=== PATIENT | female | born 1950 | race Caucasian/White ===

== ENCOUNTER 2021-04-04 08:45 | Inpatient (IN) ==
[2021-04-04] MEDS ORDERED: IOPAMIDOL 100 ML BOTTLE IV ONE (08:46)
[2021-04-04] MEDS ORDERED: LACTATED RINGERS 1,000 ML IV ONE (09:15)
[2021-04-04] MEDS ORDERED: ONDANSETRON 4 MG/2 ML VIAL IV ONE ×2 (09:17→12:14)
[2021-04-04] MEDS ORDERED: 0.9 % SODIUM CHLORIDE 1,000 ML IV ONE ×3 (09:17→13:14)
--- NOTE | 2021-04-04 09:34 | Emergency Department Note ---
Nausea/Vomiting/Diarrhea HPI General Chief complaint: Nausea/Vomiting/Diarrhea Stated complaint: N/V/D Time Seen by Provider: 04/04/21 09:10 Source: patient Mode of arrival: ambulatory Limitations: no limitations History of Present Illness HPI Narrative: Narrative:Presents to room T4 for evaluation of generalized we akness, low-grade fever with vomiting.The patient has a long history of diarrhea. She has been under the care of the agent producer and had a colonoscopy in July of this last year. She states over the last 2 to 3 days she has had increased weaknessWith nausea and vomiting. There is been poor oral intake. She also reports low-grade fever and diffuse lower abdominal discomfort. The patient reports there has been no change in her diarrhea pattern. She denies any hematemesis or coffee-ground emesis. No rectal bleeding or melanotic stool. She denies any dysuria, hematuria, frequency urgency. Pain in her abdomen is dull and constant. There are no exacerbating or alleviating factors. Related Data Home Medications Medication Instructions Recorded Confirmed cholecalciferol (vitamin D3) 25 1,000 unit PO QDAY 07/20/18 02/25/21 mcg (1,000 unit) capsule omega-3 fatty acids 1,000 mg 1,000 mg PO QDAY 07/20/18 02/25/21 capsule lactobacillus combination no.8 3 6,000 mmu cells PO QDAY cap 02/25/21 02/25/21 billion cell capsule zinc 50 mg tablet 50 mg PO QDAY 02/25/21 02/25/21 lubiprostone 8 mcg PO BID 04/04/21 04/04/21 Previous Rx's Medication Instructions Recorded omeprazole 20 mg capsule,delayed 20 mg PO BID 90 Days #180 cap 06/30/17 release trazodone 50 mg tablet 50 mg PO QHS PRN #30 tab 11/12/18 propranolol 10 mg tablet 20 mg PO BID #180 tab 03/14/20 hydrochlorothiazide 25 mg tablet See Rx Instructions .ROUTE 10/01/20 .COMPLEX #90 each losartan 100 mg tablet See Rx Instructions .ROUTE 10/01/20 .COMPLEX #90 each atorvastatin 40 mg tablet 40 mg PO QPM 90 Days #90 tab 01/10/21 levothyroxine 25 mcg tablet 37.5 mcg PO QDAY 180 Days #270 tab 02/12/21 potassium chloride 10 mEq 10 meq PO QDAY 90 Days #90 tab 03/19/21 tablet,extended release Allergies Allergy/AdvReac Type Severity Reaction Status Date / Time amlodipine [From Lotrel] AdvReac pharyngeal Verified 02/25/21 15:27 irritation benazepril [From Lotrel] AdvReac pharyngeal Verified 02/25/21 15:27 irritation Review of Systems ROS ROS Narrative: Narrative: All systems ED: reviewed and negative except as stated. [facility] Narrative Patient History Narrative: Narrative: Medical/Surgical/Family History All Active Problems (Updated 04/04/21 @ 12:42 by Tony Drake MD) Abdominal pain, vomiting, and diarrhea (Acute) Diverticulitis (Acute) Acute hypokalemia (Acute) Severe sepsis (Acute) Acute kidney injury (Acute) Medicare annual wellness visit, initial (Acute) Insomnia (Acute) Insomnia disorder (Acute) Abnormal electrocardiogram (Chronic) Wellness examination (Chronic) Encounter for Health Maintenance Examination in Adult (Chronic) History of Hollie fundoplication (Acute) Hx of esophagogastroduodenoscopy (Acute) Hx of colonoscopy (Acute) Hx of cholecystectomy (Acute) Hx of basal cell carcinoma excision (Acute) Tremor, essential (Chronic) Pharyngeal irritation (Chronic) Overweight (Chronic) Osteoporosis screening (Chronic) Disturbance of skin sensation (Chronic) Knee pain (Chronic) Hypothyroidism, acquired (Chronic) Hypertension, essential (Chronic) Hyperlipidemia (Chronic) Hypercalcemia (Chronic) Gastroesophageal reflux (Chronic) Dyspepsia (Chronic) Diverticulosis of colon (Chronic) Basal cell carcinoma of face (Chronic) Abnormal stress test (Chronic) Abnormal electrocardiogram (Chronic) Medical History Abnormal electrocardiogram 03/29/12-abnormal EKG--consider cardiolite. See 05/04/12 office visit note. 01/24/13 Non-exercise cardiolite.--Dr. Thapa--questionable apical ischemia, asymptomatic Abnormal stress test 01/24/13-Abnormal cardiolite--Dr. Thapa--normal ejection fraction of 74% with a question of very small area of inferior apical infarct/ischemia, also contributed to somewhat by diaphragm artifact. Basal cell carcinoma of face 2005-Basal Cell CA removed off her nose in [place] 2005. No recurrence and no new suspicious lesions or bruising. Disturbance of skin sensation 2003-Left sided numbness with referral to and to in [place]--workup with MRI and doppler--no recurrence Diverticulosis of colon 03/13/10-Colonoscopy--Dr. Glover--Moderate uncomplicated diverticulosis in left colon; internal hemorroids; family history of colon CA in her father age 80s. 5-year sequence. Dyspepsia Status post Hollie fundoplication in 07/2009 with recurrent dyspepsia/reflux six months ago, but not currently stabilized with Zantac alone. We will add Prilosec and schedule a repeat EGD Encounter for Health Maintenance Examination in Adult Gastroesophageal reflux 06/02/12--Dr. Glover--EGD revealing patient's Hollie repair in 2008 had slipped resulting in recurrent reflux; small hiatal hernia; normal stomach and duodendum. Prilosec 40mg daily Hypercalcemia Mild Hyperlipidemia Hypertension, essential Hypothyroidism, acquired H/O hypothyroidism, on replacement and is clinically euthyroid. No history of goiter Insomnia Knee pain 2002-Difficulty with knee pain several years ago (2002)--Dr. Mckeon. Currently fairly quiescent. Medicare annual wellness visit, initial Osteoporosis screening 02/08/08-Bone Density--Spine T-score +2.2; Hip T-score 1.1, Vitmain D Level 02/07/10 was 30.3. Overweight gained 10# [id number], weight approx 205# Pharyngeal irritation Tremor, essential H/O tremor, felt to likely be essential tremor. Has seen Dr. Majano and is on low-dose Inderal which she seems to tolerate with no fatigue--last reviewed 10/2011. Surgical History History of Hollie fundoplication 07/2009-Dr. Sarah--S/P Hollie fundoplication dyspepsia/reflux 10/2011. See EGD 06/02/12 Hx of basal cell carcinoma excision operated in [place] in 2005 Hx of cholecystectomy 1990 Hx of colonoscopy 03/13/10-Dr. Glover--Moderate uncomplicated divertidulosis in left colon; internal hemorrhoids; family history of colon CA om her father age 80's. 5- year sequence Hx of esophagogastroduodenoscopy 06/02/12--Dr. Glover-- EGD revealing patient's Hollie repair in 2008 had slipped resulting in recurrent reflux; small hiatal hernia; normal stomach and duodendum. Prilosec 40mg daily. Family History Grandmother Malignant neoplasm of female breast Father Malignant neoplasm of colon Social History Smoking Status: Never smoker Alcohol Intake Frequency: does not drink Substance Use: does not use Exam Narrative Narrative: Narrative: General Limitations: no limitations General appearance: Present alert and in no apparent distress Head Head: Present atraumatic, normocephalic and normal inspection Eye Eye: Present normal appearance and EOMI; Absent conjunctival injection ENT ENT: Present normal exam and mucous membranes moist Neck Neck: Present normal inspection and trachea midline Respiratory Respiratory: Present normal lung sounds bilaterally; Absent respiratory distress Cardiovascular Cardiovascular: Present regular rate, normal rhythm and normal heart sounds Adbominal Abdominal: Present soft; Absent distention, tenderness, guarding and rebound Extremities Extremities: Present normal inspection; Absent tenderness Back Back: Present normal inspection; Absent tenderness Neurological Neurological: Present alert, oriented X3 and CN II-XII intact; Absent motor sensory deficit Psychiatric Psychiatric: Present normal affect and normal mood Skin Skin: Present warm (WNL) and dry; Absent rash Course Vital Signs Vital signs: Vital Signs Temperature 100.9 F H 04/04/21 08:47 Pulse Rate 91 H 04/04/21 08:47 Respiratory Rate 18 04/04/21 08:47 Blood Pressure 89/58 04/04/21 08:47 Pulse Oximetry (%) 94 04/04/21 08:47 Temperature 100.9 F H 04/04/21 08:47 Pulse Rate 91 H 04/04/21 08:47 Respiratory Rate 18 04/04/21 08:47 Blood Pressure 100/60 04/04/21 09:31 Pulse Oximetry (%) 94 04/04/21 08:47 MDM MDM Narrative Medical decision making narrative: Narrative: Lab Data Lab results reviewed: Yes I reviewed the patient's lab results. Result diagrams: 04/04/21 09:33 04/04/21 09:33 Labs: Lab Results 04/04/21 04/04/21 04/04/21 Range/Units 09:33 09:33 09:33 WBC 24.3 H (4.5-11.0) K/mcL RBC 3.94 L (4.00-5.20) M/mcL Hgb 11.6 L (12.0-15.0) g/dL Hct 34.1 L (36.0-48.0) % MCV 86.5 (80.0-100.0) fL MCH 29.4 (26.0-34.0) pg MCHC 34.0 (31.0-36.0) g/dL RDW 13.9 (11.5-14.5) % Plt Count 297 (140-440) K/mcL MPV 11.4 H (7.4-10.4) fL Neut % (Auto) 91.1 H (38.0-78.0) % Lymph % (Auto) 4.7 L (15.0-49.0) % [place] % (Auto) 3.8 (1.0-12.0) % Eos % (Auto) 0.2 (0.0-7.0) % Baso % (Auto) 0.2 (0.0-2.0) % Lymph # (Auto) 1.13 L (1.50-4.80) K/mcL [place] # (Auto) 0.93 H (0.10-0.90) K/mcL Eos # (Auto) 0.05 (0.00-0.70) K/mcL Baso # (Auto) 0.05 (0.00-0.20) K/mcL Absolute Neutrophils 22.14 H (1.80-8.00) K/mcL VBG Lactic Acid 1.6 (0.5-2.0) mmol/L Sodium 128 L (133-145) mmol/L Potassium 2.7 L* (3.3-5.1) mmol/L Chloride 92 L (96-108) mmol/L Carbon Dioxide 19 L (22-30) mmol/L Anion Gap 17.0 H (8.0-16.0) BUN 41 H (8-23) mg/dL Creatinine 3.4 H (0.6-1.1) mg/dL GFR Calculation 13 Glucose 105 (70-105) mg/dL Calcium 9.3 (8.6-10.4) mg/dL Magnesium (1.6-2.5) mg/dL Total Bilirubin 0.9 (0.1-1.0) mg/dL AST 19 (<32) U/L ALT 24 (<40) U/L Alkaline Phosphatase 152 H (39-117) U/L Total Protein 7.5 (5.9-8.4) gm/dL Albumin 3.3 (3.2-5.2) gm/dL Globulin 4.2 H (2.2-3.7) gm/dL Albumin/Globulin Ratio 0.8 L (1.0-2.3) Lipase 27 (7-60) U/L 04/04/21 Range/Units 09:33 WBC (4.5-11.0) K/mcL RBC (4.00-5.20) M/mcL Hgb (12.0-15.0) g/dL Hct (36.0-48.0) % MCV (80.0-100.0) fL MCH (26.0-34.0) pg MCHC (31.0-36.0) g/dL RDW (11.5-14.5) % Plt Count (140-440) K/mcL MPV (7.4-10.4) fL Neut % (Auto) (38.0-78.0) % Lymph % (Auto) (15.0-49.0) % [place] % (Auto) (1.0-12.0) % Eos % (Auto) (0.0-7.0) % Baso % (Auto) (0.0-2.0) % Lymph # (Auto) (1.50-4.80) K/mcL [place] # (Auto) (0.10-0.90) K/mcL Eos # (Auto) (0.00-0.70) K/mcL Baso # (Auto) (0.00-0.20) K/mcL Absolute Neutrophils (1.80-8.00) K/mcL VBG Lactic Acid (0.5-2.0) mmol/L Sodium (133-145) mmol/L Potassium (3.3-5.1) mmol/L Chloride (96-108) mmol/L Carbon Dioxide (22-30) mmol/L Anion Gap (8.0-16.0) BUN (8-23) mg/dL Creatinine (0.6-1.1) mg/dL GFR Calculation Glucose (70-105) mg/dL Calcium (8.6-10.4) mg/dL Magnesium 1.8 (1.6-2.5) mg/dL Total Bilirubin (0.1-1.0) mg/dL AST (<32) U/L ALT (<40) U/L Alkaline Phosphatase (39-117) U/L Total Protein (5.9-8.4) gm/dL Albumin (3.2-5.2) gm/dL Globulin (2.2-3.7) gm/dL Albumin/Globulin Ratio (1.0-2.3) Lipase (7-60) U/L Radiology Data Radiology results reviewed: Yes I reviewed the patient's radiology results. CC TIME Critical Care Time Critical Care Time: Yes Total Critical Care Time: 30 Attestation: Approximately 30 minutes of critical care time was used in order to assess and manage the high probability of imminent or life threatening deterioration which required my highest level of preparedness and interventions with frequent patient assessments. This time is excluding time spent on separately billable procedures. On arrival patient presents for lower abdominal discomfort persistent nausea and vomiting with diarrhea. The patient does have low-grade fever with tachycardia and leukocytosis consistent with SIRS. The patient did have a normal lactate but had one episode of hypotension as well as elevated BUN and creatinine consistent with severe sepsis. The patient did respond to IV fluids and had no further episodes of persistent hypotension. The patient was given IV antibiotics after blood cultures. The patient was also treated symptomatically with Zofran. CT scan of the abdomen pelvis confirms simple diverticulitis. In addition, the patient was noted to have a low potassium of 2.7. Magnesium was normal at 1.8. I did order oral and IV potassium replenishment. On repeat examination the patient is feeling somewhat improved but still does not feel well. At this time I discussed the case with the hospitalist for admission. Discharge Plan Patient/Caregiver Discharge Instructions Pt seen by [facility] only: No Clinical Impression: Abdominal pain, vomiting, and diarrhea, Diverticulitis, Acute hypokalemia, Severe sepsis, Acute kidney injury Patient Disposition: Xfer As Inpt ([facility]) Follow up with: Niranjan Tejada MD, FAAFP [Primary Care Provider] - Prescriptions: No Action trazodone 50 mg tablet 50 mg PO QHS PRN (Reason: insomnia) Qty: 30 RF: 0 propranolol 10 mg tablet 20 mg PO BID Qty: 180 RF: 4 losartan 100 mg tablet See Rx Instructions .ROUTE .COMPLEX Qty: 90 RF: 3 hydrochlorothiazide 25 mg tablet See Rx Instructions .ROUTE .COMPLEX Qty: 90 RF: 3 atorvastatin 40 mg tablet 40 mg PO QPM 90 Days Qty: 90 RF: 3 levothyroxine 25 mcg tablet 37.5 mcg PO QDAY 180 Days Qty: 270 RF: 3 potassium chloride 10 mEq tablet extended release 10 meq PO QDAY 90 Days Qty: 90 RF: 3 cholecalciferol (vitamin D3) 1,000 unit capsule 1,000 unit PO QDAY RF: 0 omega-3 fatty acids [Fish Oil Concentrate] 1,000 mg capsule 1,000 mg PO QDAY RF: 0 Adult Probiotic 3 billion cell capsule 6,000 mmu cells PO QDAY RF: 0 zinc 50 mg tablet 50 mg PO QDAY RF: 0 omeprazole 20 mg capsule,delayed release(DR/EC) 20 mg PO BID 90 Days Qty: 180 RF: 3 lubiprostone 8 mcg Capsule 8 mcg PO BID RF: 0
[2021-04-04 10:04] LABS: Basophils # (Auto) 0.05 K/mcL (0.00-0.20); Basophils % (Auto) 0.2 % (0.0-2.0); Eosinophils # (Auto) 0.05 K/mcL (0.00-0.70); Eosinophils % (Auto) 0.2 % (0.0-7.0); Hematocrit 34.1 % (36.0-48.0); Hemoglobin 11.6 g/dL (12.0-15.0); Lymphocytes # (Auto) 1.13 K/mcL (1.50-4.80); Lymphocytes % (Auto) 4.7 % (15.0-49.0); Mean Cell Volume 86.5 fL (80.0-100.0); Mean Platelet Volume 11.4 fL (7.4-10.4); Monocytes # (Auto) 0.93 K/mcL (0.10-0.90); Monocytes % (Auto) 3.8 % (1.0-12.0); Neutrophils % (Auto) 91.1 % (38.0-78.0); Platelet Count 297 K/mcL (140-440); RBC 3.94 M/mcL (4.00-5.20); Red Cell Distribution Width 13.9 % (11.5-14.5); WBC 24.3 K/mcL (4.5-11.0)
--- NOTE | 2021-04-04 10:40 | Cat Scan Report ---
History: Fever, lower abdominal pain, nausea, diarrhea diverticulosis technique: The patient was imaged following injection of intravenous nonionic contrast scanning during the portal venous phase from the diaphragm through the symphysis pubis. Sagittal and coronal reformats were created. Radiation exposure was limited using dose reduction technology. FINDINGS: Lung bases are clear. There is pericardial thickening which could be due to small effusion or scar. Heart size is within normal limits and there are calcified plaques in the coronary arteries. There is a moderate size hiatus hernia. The liver and spleen are normal in size and homogeneous. The gallbladder has been removed. There is moderate dilatation of the extrahepatic bile ducts. Common bile duct measures up to 1.4 x 1.5 cm. This tapers to normal caliber at the ampulla. There is no evidence of a mass or stone in or adjacent to the distal common bile duct. Intrahepatic ducts are nondilated. The pancreas is normal without evidence of a mass or inflammation. The duct is small.. The adrenals are normal and symmetric. There is a nonobstructing 1.5 mm calculus within a calyx anteriorly in the middle third of the right kidney. The kidneys are otherwise normal and there is no hydronephrosis or evidence of acute inflammation. There is mild stranding of the pararenal fat on the right side which may be from a previous episode of inflammation or obstruction. There are no stones in left kidney. There are scattered plaques along the wall of normal caliber abdominal aorta. Inferior vena cava is normal. There are numerous diverticula in the sigmoid colon and several in the descending colon. There is thickening of the wall of the sigmoid colon and stranding of the adjacent fat. There is no abscess or evidence of perforation. There is a moderate amount of submucosal deposition of fat in the ascending colon and cecum extending to the proximal transverse colon. This is often associated with chronic inflammatory bowel disease. There is no acute inflammation in the right side of the large bowel. The appendix is noninflamed. The small intestine is normal.. No abnormality is seen in the uterus or ovaries. Urinary bladder is decompressed. Degenerative disc disease and arthritis are present at multiple levels in the thoracic and lumbar spine. There is ankylosis across the L5-S1 disc and there has been a prior laminectomy at that level. There is moderate spinal canal stenosis at L2-3 due to large spurs. IMPRESSION: Acute diverticulitis of the sigmoid colon Dilated extrahepatic bile ducts. This may be a reservoir effect following a prior cholecystectomy or a stricture at the ampulla. Dr. Drake was called with the report Interpreted and Authenticated by: Mac Weston 04/04/21
[2021-04-04] MEDS ORDERED: metroNIDAZOLE 500 MG/100 ML BAG IV ONE (10:55)
[2021-04-04] MEDS ORDERED: LEVOFLOXACIN 500 MG/100 ML BAG IV ONE (10:55)
[2021-04-04] MEDS ORDERED: POTASSIUM CHLORIDE 20 MEQ TABLET PO ONE (10:55)
[2021-04-04] MEDS ORDERED: POTASSIUM CHLORIDE 20 MEQ in DEXTROSE 5% IN WATER 250 ML IV ONE (10:55)
[2021-04-04 10:56] LABS: ALT/SGPT 24 U/L (<40); AST/SGOT 19 U/L (<32); Albumin 3.3 gm/dL (3.2-5.2); Albumin/Globulin Ratio 0.8 (1.0-2.3); Alkaline Phosphatase 152 U/L (39-117); Bilirubin,Total 0.9 mg/dL (0.1-1.0); Blood Urea Nitrogen 41 mg/dL (8-23); Calcium 9.3 mg/dL (8.6-10.4); Carbon Dioxide 19 mmol/L (22-30); Chloride 92 mmol/L (96-108); Globulin 4.2 gm/dL (2.2-3.7); Glomerular Filtration Rate 13; Glucose 105 mg/dL (70-105)
[2021-04-04] MEDS ORDERED: PROCHLORPERAZINE 10 MG/2 ML VIAL IV ONE (12:49)
--- NOTE | 2021-04-04 13:54 | Internal Med History&Physical ---
HPI History of Present Illness Patient information: Note initiated : 04/04/21 at 1:39 pm Service Date, if different from initiated Date: [] Patient: Monica Feldman 70 y/o F admitted on for N/V/D. Chief Complaint: [] Chief complaint: Nausea, vomiting, abdominal pain History of present illness: Ms. Feldman is a 70 year old female with a history of hypertension, hyperlipidemia, hypothyroidism, unexplained chronic sofía rrhea, history of cholecystectomy who presented to the ED with her spouse for nausea, vomiting, chills and abdominal pain in her left lower quadrant. History was taken from the patient and her . Her symptoms began with nausea and vomiting on April 01 followed by abdominal pain starting the next day. The patient has not been able to keep down food or liquids. She has noticed a decrease in urination, also experienced severe fatigue. They did not check her temperature however the patient did have a fever in the ED. Work-up in the ED is suggestive of severe sepsis, patient had a fever, leukocytosis, hypotension, and an acute kidney injury. Work-up also showed that the patient had an anion gap metabolic acidosis, hyponatremia and hypokalemia. CT abdomen and pelvis with contrast showed acute diverticulitis of the sigmoid colon. She received IV fluids and broad-spectrum antibiotics in the ED and was admitted to the hospital for further management. Review of symptoms Constitutional: positive for fever, chills, and fatigue. Eyes: no vision changes or pain Cardiovascular: no chest pain, no palpitations Respiratory: no cough or dyspnea Gastrointestinal: positive for abdominal pain, nausea, vomiting, and diarrhea Genitourinary: positive for decreased urination. Musculoskeletal: no arthralgia or myalgia Integumentary: no skin lesion or wound Neurological: no focal weakness or numbness Psychiatric: no anxiety or depression Physical exam Head: Atraumatic, normal inspection. Eyes: normal appearance, no scleral icterus. Neck: full ROM Respiratory: no respiratory distress. Cardiovascular: normal rate and rhythm, S1, S2. GI/Abdominal: soft, left lower quadrant tenderness, no guarding, no rebound tenderness. Extremities: full range of motion, nontender. Neurological: CN II-XII intact, intact motor, intact sensation. Psychiatric: normal mood. Skin: warm, normal color PFSH PFSH All Active Problems (Updated 04/04/21 @ 12:42 by Tony Drake MD) Abdominal pain, vomiting, and diarrhea (Acute) Diverticulitis (Acute) Acute hypokalemia (Acute) Severe sepsis (Acute) Acute kidney injury (Acute) Medicare annual wellness visit, initial (Acute) Insomnia (Acute) Insomnia disorder (Acute) Abnormal electrocardiogram (Chronic) Wellness examination (Chronic) Encounter for Health Maintenance Examination in Adult (Chronic) History of Hollie fundoplication (Acute) Hx of esophagogastroduodenoscopy (Acute) Hx of colonoscopy (Acute) Hx of cholecystectomy (Acute) Hx of basal cell carcinoma excision (Acute) Tremor, essential (Chronic) Pharyngeal irritation (Chronic) Overweight (Chronic) Osteoporosis screening (Chronic) Disturbance of skin sensation (Chronic) Knee pain (Chronic) Hypothyroidism, acquired (Chronic) Hypertension, essential (Chronic) Hyperlipidemia (Chronic) Hypercalcemia (Chronic) Gastroesophageal reflux (Chronic) Dyspepsia (Chronic) Diverticulosis of colon (Chronic) Basal cell carcinoma of face (Chronic) Abnormal stress test (Chronic) Abnormal electrocardiogram (Chronic) Medical History Abnormal electrocardiogram 03/29/12-abnormal EKG--consider cardiolite. See 05/04/12 office visit note. 01/24/13 Non-exercise cardiolite.--Dr. Thapa--questionable apical ischemia, asymptomatic Abnormal stress test 01/24/13-Abnormal cardiolite--Dr. Thapa--normal ejection fraction of 74% with a question of very small area of inferior apical infarct/ischemia, also contributed to somewhat by diaphragm artifact. Basal cell carcinoma of face 2005-Basal Cell CA removed off her nose in [place] 2005. No recurrence and no new suspicious lesions or bruising. Disturbance of skin sensation 2003-Left sided numbness with referral to and to in [place]--workup with MRI and doppler--no recurrence Diverticulosis of colon 03/13/10-Colonoscopy--Dr. Glover--Moderate uncomplicated diverticulosis in left colon; internal hemorroids; family history of colon CA in her father age 80s. 5-year sequence. Dyspepsia Status post Hollie fundoplication in 07/2009 with recurrent dyspepsia/reflux six months ago, but not currently stabilized with Zantac alone. We will add Prilosec and schedule a repeat EGD Encounter for Health Maintenance Examination in Adult Gastroesophageal reflux 06/02/12-- Parent--EGD revealing patient's Hollie repair in 2008 had slipped resulting in recurrent reflux; small hiatal hernia; normal stomach and duodendum. Prilosec 40mg daily Hypercalcemia Mild Hyperlipidemia Hypertension, essential Hypothyroidism, acquired H/O hypothyroidism, on replacement and is clinically euthyroid. No history of goiter Insomnia Knee pain 2002-Difficulty with knee pain several years ago (2002)--Dr. Mckeon. Currently fairly quiescent. Medicare annual wellness visit, initial Osteoporosis screening 02/08/08-Bone Density--Spine T-score +2.2; Hip T-score 1.1, Vitmain D Level 02/07/10 was 30.3. Overweight gained 10# [id number], weight approx 205# Pharyngeal irritation Tremor, essential H/O tremor, felt to likely be essential tremor. Has seen Dr. Majano and is on low-dose Inderal which she seems to tolerate with no fatigue--last reviewed 10/2011. Surgical History History of Hollie fundoplication 07/2009-Dr. Sarah--S/P Hollie fundoplication dyspepsia/reflux 10/2011. See EGD 06/02/12 Hx of basal cell carcinoma excision operated in [place] in 2005 Hx of cholecystectomy 1990 Hx of colonoscopy 03/13/10-Dr. Glover--Moderate uncomplicated divertidulosis in left colon; internal hemorrhoids; family history of colon CA om her father age 80's. 5- year sequence Hx of esophagogastroduodenoscopy 06/02/12-- Parent-- EGD revealing patient's Hollie repair in 2008 had slipped resulting in recurrent reflux; small hiatal hernia; normal stomach and duodendum. Prilosec 40mg daily. Family History Grandmother Malignant neoplasm of female breast Father Malignant neoplasm of colon Social History household members: spouse housing: house marital status: occupational status: retired alcohol intake frequency: does not drink substance use type: does not use MEDS/ALLERGIES Home Medications and Allergies Home Medications Medication Instructions Recorded Confirmed Type omeprazole 20 mg capsule,delayed 20 mg PO BID 90 Days #180 cap 06/30/17 02/25/21 Rx release cholecalciferol (vitamin D3) 25 1,000 unit PO QDAY 07/20/18 02/25/21 History mcg (1,000 unit) capsule omega-3 fatty acids 1,000 mg 1,000 mg PO QDAY 07/20/18 02/25/21 History capsule trazodone 50 mg tablet 50 mg PO QHS PRN #30 tab 11/12/18 02/25/21 Rx propranolol 10 mg tablet 20 mg PO BID #180 tab 03/14/20 02/25/21 Rx hydrochlorothiazide 25 mg tablet See Rx Instructions .ROUTE 10/01/20 02/25/21 Rx .COMPLEX #90 each losartan 100 mg tablet See Rx Instructions .ROUTE 10/01/20 02/25/21 Rx .COMPLEX #90 each atorvastatin 40 mg tablet 40 mg PO QPM 90 Days #90 tab 01/10/21 02/25/21 Rx levothyroxine 25 mcg tablet 37.5 mcg PO QDAY 180 Days #270 tab 02/12/21 02/25/21 Rx lactobacillus combination no.8 3 6,000 mmu cells PO QDAY cap 02/25/21 02/25/21 History billion cell capsule zinc 50 mg tablet 50 mg PO QDAY 02/25/21 02/25/21 History potassium chloride 10 mEq 10 meq PO QDAY 90 Days #90 tab 03/19/21 Rx tablet,extended release lubiprostone 8 mcg PO BID 04/04/21 04/04/21 History Allergies Allergy/AdvReac Type Severity Reaction Status Date / Time amlodipine [From Lotrel] AdvReac pharyngeal Verified 02/25/21 15:27 irritation benazepril [From Lotrel] AdvReac pharyngeal Verified 02/25/21 15:27 irritation EXAM Constitutional Vitals: Temp Pulse Resp BP Pulse Ox 100.9 F H 86 18 123/79 97 04/04/21 08:47 04/04/21 13:31 04/04/21 13:31 04/04/21 13:31 04/04/21 13:31 DATA Data Completed and Pending Labs: Labs from last 24 hours 04/04/21 04/04/21 04/04/21 09:33 09:33 09:33 WBC RBC Hgb Hct MCV MCH MCHC RDW Plt Count MPV Neut % (Auto) Lymph % (Auto) [place] % (Auto) Eos % (Auto) Baso % (Auto) Lymph # (Auto) [place] # (Auto) Eos # (Auto) Baso # (Auto) Absolute Neutrophils VBG Lactic Acid 1.6 Sodium 128 L Potassium 2.7 L* Chloride 92 L Carbon Dioxide 19 L Anion Gap 17.0 H BUN 41 H Creatinine 3.4 H GFR Calculation 13 Glucose 105 Calcium 9.3 Magnesium 1.8 Total Bilirubin 0.9 AST 19 ALT 24 Alkaline Phosphatase 152 H Total Protein 7.5 Albumin 3.3 Globulin 4.2 H Albumin/Globulin Ratio 0.8 L Lipase 27 04/04/21 09:33 WBC 24.3 H RBC 3.94 L Hgb 11.6 L Hct 34.1 L MCV 86.5 MCH 29.4 MCHC 34.0 RDW 13.9 Plt Count 297 MPV 11.4 H Neut % (Auto) 91.1 H Lymph % (Auto) 4.7 L [place] % (Auto) 3.8 Eos % (Auto) 0.2 Baso % (Auto) 0.2 Lymph # (Auto) 1.13 L [place] # (Auto) 0.93 H Eos # (Auto) 0.05 Baso # (Auto) 0.05 Absolute Neutrophils 22.14 H VBG Lactic Acid Sodium Potassium Chloride Carbon Dioxide Anion Gap BUN Creatinine GFR Calculation Glucose Calcium Magnesium Total Bilirubin AST ALT Alkaline Phosphatase Total Protein Albumin Globulin Albumin/Globulin Ratio Lipase A/P Narrative A/P Narrative: Assessment: 70 year old female with a history of hypertension, hyperlipidemia, hypothyroidism, unexplained chronic diarrhea, history of cholecystectomy, diverticulosis admitted for severe sepsis and acute kidney injury secondary to acute diverticulitis of the sigmoid colon. #Severe sepsis secondary to acute diverticulitis #Acute kidney injury, oliguric versus aneuric #Anion gap metabolic acidosis #Hypokalemia #Hyponatremia #Hx of hypertension-currently hypotensive due to sepsis #Hyperlipidemia #Hypothyroidism #Chronic unexplained diarrhea (secretory diarrhea?) #Hx of cholecytectomy Plan -Ceftriaxone and Flagyl for acute diverticulitis (no recent antibiotic use reported). -IV fluids per sepsis protocol. -Follow renal function and urine output. -Avoid nephrotoxic meds, renally dose medications. -Potassium replacement IV. -C. difficile GDH/toxin A/B -Follow-up cultures. -Trend labs. -N.p.o. for bowel rest -DVT PPx: Heparin SQ -CODE STATUS: Full -Disposition: Home when stable. Time Spent With Patient Time: Total time spent is greater than 50% in coordination of care (as documented) at patient's floor/unit and/or counseling patient:
[2021-04-04] MEDS ORDERED: SENNOSIDES 1 TABLET PO PRN (15:18)
[2021-04-04] MEDS ORDERED: LACTULOSE 20 GM/30 ML ORAL.SOL PO PRN (15:18)
[2021-04-04] MEDS: cefTRIAXone 2 GM in DEXTROSE 5% IN WATER 50 ML IV SCH (15:42)
[2021-04-04] MEDS: 0.9 % SODIUM CHLORIDE 1,000 ML IV SCH ×2 (15:42→23:08)
[2021-04-04] MEDS: 0.9 % SODIUM CHLORIDE 10 ML SYRINGE IV SCH ×2 (15:44→21:35)
[2021-04-04] MEDS ORDERED: POTASSIUM CHLORIDE 40 MEQ in DEXTROSE 5% IN WATER 500 ML IV ONE (16:00)
[2021-04-04 17:42] LABS: ALT/SGPT 21 U/L (<40); AST/SGOT 18 U/L (<32); Albumin/Globulin Ratio 0.8 (1.0-2.3); Alkaline Phosphatase 140 U/L (39-117); Bilirubin,Direct 0.4 mg/dL (<0.3); Bilirubin,Total 0.8 mg/dL (0.1-1.0); Blood Urea Nitrogen 41 mg/dL (8-23); Calcium 8.8 mg/dL (8.6-10.4); Carbon Dioxide 17 mmol/L (22-30); Chloride 97 mmol/L (96-108); Glomerular Filtration Rate 14; Glucose 98 mg/dL (70-105); Lactate Dehydrogenase 182 U/L (135-225); Triglycerides 99 mg/dL (<150); Uric Acid 7.5 mg/dL (2.5-8.0)
[2021-04-04] MEDS ORDERED: NOREPINEPHRINE BITARTRATE 8 MG in 0.9 % SODIUM CHLORIDE 242 ML IV SCH (20:30)
[2021-04-04] MEDS: DOCUSATE SODIUM 100 MG CAPSULE PO SCH (20:57)
[2021-04-04] MEDS: HEPARIN 5,000 UNIT/ML VIAL SQ SCH (21:15)
[2021-04-04] MEDS: ONDANSETRON 4 MG/2 ML VIAL IV PRN (21:35)
[2021-04-04] MEDS: metroNIDAZOLE 500 MG/100 ML BAG IV SCH (21:58)
[2021-04-04] MEDS: 0.9 % SODIUM CHLORIDE 250 ML IV SCH (22:51)
[2021-04-05] MEDS: metroNIDAZOLE 500 MG/100 ML BAG IV SCH ×3 (05:26→22:14)
[2021-04-05] MEDS: 0.9 % SODIUM CHLORIDE 10 ML SYRINGE IV SCH ×3 (05:30→22:15)
[2021-04-05] MEDS ORDERED: NOREPINEPHRINE BITARTRATE 8 MG in 0.9 % SODIUM CHLORIDE 242 ML IV PRN (06:45)
[2021-04-05] MEDS: 0.9 % SODIUM CHLORIDE 1,000 ML IV SCH ×3 (06:57→17:14)
[2021-04-05 06:58] LABS: Hematocrit 27.5 % (36.0-48.0); Mean Cell Volume 90.2 fL (80.0-100.0); Mean Corpuscular HGB Conc 32.7 g/dL (31.0-36.0); Mean Platelet Volume 11.1 fL (7.4-10.4); Platelet Count 207 K/mcL (140-440); RBC 3.05 M/mcL (4.00-5.20); Red Cell Distribution Width 14.6 % (11.5-14.5)
[2021-04-05 07:56] LABS: ALT/SGPT 16 U/L (<40); AST/SGOT 18 U/L (<32); Albumin 2.5 gm/dL (3.2-5.2); Albumin/Globulin Ratio 0.8 (1.0-2.3); Alkaline Phosphatase 132 U/L (39-117); Bilirubin,Direct 0.2 mg/dL (<0.3); Bilirubin,Total 0.3 mg/dL (0.1-1.0); Blood Urea Nitrogen 36 mg/dL (8-23); Carbon Dioxide 17 mmol/L (22-30); Chloride 105 mmol/L (96-108); Globulin 3.3 gm/dL (2.2-3.7); Glomerular Filtration Rate 18; Glucose 100 mg/dL (70-105); Lactate Dehydrogenase 185 U/L (135-225); Phosphorous 2.4 mg/dL (2.5-4.5); Triglycerides 80 mg/dL (<150); Uric Acid 7.6 mg/dL (2.5-8.0)
[2021-04-05 08:12] LABS: Band Neutrophils % 2 % (0-10); Lymphocytes % 2 % (15-49); Monocytes % (Manual) 4 % (1-12); Platelet Estimate NORMAL (Normal); RBC Morphology NORMAL (Normal); Segmented Neutrophils % 92 % (38-78)
[2021-04-05] MEDS: DOCUSATE SODIUM 100 MG CAPSULE PO SCH ×2 (08:43→20:32)
[2021-04-05] MEDS: POTASSIUM CHLORIDE 40 MEQ in DEXTROSE 5% IN WATER 500 ML IV SCH ×2 (08:43→21:12)
[2021-04-05] MEDS: cefTRIAXone 2 GM in DEXTROSE 5% IN WATER 50 ML IV SCH (10:05)
[2021-04-05] MEDS: HEPARIN 5,000 UNIT/ML VIAL SQ SCH ×2 (10:05→21:12)
[2021-04-05] MEDS: 0.9 % SODIUM CHLORIDE 250 ML IV SCH ×2 (10:06→21:13)
[2021-04-05] MEDS: ONDANSETRON 4 MG/2 ML VIAL IV PRN ×3 (10:14→23:34)
--- NOTE | 2021-04-05 13:03 | Internal Med Progress Note ---
SUBJECTIVE Subjective Patient information: Note initiated : 04/05/21 at 1:03 pm Service Date, if different from initiated Date: [] Patient: Monica Feldman 70 y/o F admitted on 04/04/21 for N/V/D. Chief Complaint: [] Interval history: Ms. Feldman is a 70 year old female with a history of hypertension, hyperlipidemia, hypothyroidism, unexplained chronic diarrhea, history of cholecystectomy who presented to the ED with her spouse for nausea, vomiting, chills and abdominal pain in her left lower quadrant. History was taken from the patient and her . Her symptoms began with nausea and vomiting on April 01 followed by abdominal pain starting the next day. The patient has not been able to keep down food or liquids. She has noticed a decrease in urination, also experienced severe fatigue. They did not check her temperature however the patient did have a fever in the ED. Work-up in the ED is suggestive of severe sepsis, patient had a fever, leukocytosis, hypotension, and an acute kidney injury. Work-up also showed that the patient had an anion gap metabolic acidosis, hyponatremia and hypokalemia. CT abdomen and pelvis w ith contrast showed acute diverticulitis of the sigmoid colon. She received IV fluids and broad-spectrum antibiotics in the ED and was admitted to the hospital for further management. 04/05 The patient feels better today, sepsis physiology has resolved, leukocytosis improving, renal function improving. 2/2 blood cultures growing gram negative bacillus, likely E coli. Advanced diet to clear liquids. Replaced potassium. Physical exam Head: Atraumatic, normal inspection. Eyes: normal appearance, no scleral icterus. Neck: full ROM Respiratory: no respiratory distress. Cardiovascular: normal rate and rhythm, S1, S2. GI/Abdominal: soft, left lower quadrant tenderness, no guarding, no rebound te nderness. Extremities: full range of motion, nontender. Neurological: CN II-XII intact, intact motor, intact sensation. Psychiatric: normal mood. Skin: warm, normal color Constitutional Vitals: Vital Signs Temp Pulse Resp BP Pulse Ox 97.1 F 81 22 125/76 96 04/05/21 12:01 04/05/21 12:01 04/05/21 12:01 04/05/21 12:04/05/21 12:01 Period Temp Pulse Resp BP Sys/Murray Pulse Ox Last 24 Hr 97.1 F-100.9 F 66-108 17-30 101-164/59-81 95-100 Intake and Output 04/04/21 04/05/21 04/05/21 21:59 05:59 13:59 Intake Total 1930 3100 150 Output Total 225 1150 800 Balance 1705 1950 -650 Weight 94.302 kg Intake & Output: Intake & Output 04/04/21 04/05/21 04/05/21 21:59 05:59 13:59 Intake Total 1930 3100 150 Output Total 225 1150 800 Balance 1705 1950 -650 Weight 94.302 kg Intake: IV 1930 3100 150 Sodium Chloride 0.9% 1,000 ml @ 1000 3000 150 mls/hr IV .Q6H40M [facility] Rx#: [id number] Potassium Chloride 20 Meq In 260 Dextrose 5% in Water 250 ml @ 130 mls/hr IV ONCE ONE Rx#: [id number] Potassium Chloride 40 Meq In 520 Dextrose 5% in Water 500 ml @ 130 mls/hr IV ONCE ONE Rx#: [id number] Rocephin 2 gm In Dextrose 5% in 50 50 Water 50 ml @ 100 mls/hr IV DAILY [facility] [place] Rx#:[id number] Output: Urine/Stool Mix 825 800 Stool 225 325 Other: Stool Size Moderate Stool Color Green Green Stool Consistency Liquid Liquid Watery Watery # Bowel Movements 1 OBJ DATA Labs CBC & Chem 7: 04/05/21 05:25 04/05/21 05:26 Labs: Abnormal Lab Results 04/05/21 04/05/21 04/04/21 05:26 05:25 15:43 WBC 17.0 H RBC 3.05 L Hgb 9.0 L Hct 27.5 L RDW 14.6 H MPV 11.1 H Neut % (Auto) Lymph % (Auto) Lymph # (Auto) [place] # (Auto) Seg Neutrophils % 92 H Lymphocytes % 2 L Absolute Neutrophils Sodium Potassium 2.7 L* 2.8 L* Chloride Carbon Dioxide 17 L 17 L Anion Gap 20.0 H BUN 36 H 41 H Creatinine 2.6 H 3.3 H Calcium 8.0 L Phosphorus 2.4 L 2.0 L Magnesium 1.5 L Direct Bilirubin 0.4 H GGT 39 H 40 H Alkaline Phosphatase 132 H 140 H Total Protein 5.8 L Albumin 2.5 L 3.0 L Globulin 4.0 H Albumin/Globulin Ratio 0.8 L 0.8 L 04/04/21 04/04/21 09:33 09:33 WBC 24.3 H RBC 3.94 L Hgb 11.6 L Hct 34.1 L RDW MPV 11.4 H Neut % (Auto) 91.1 H Lymph % (Auto) 4.7 L Lymph # (Auto) 1.13 L [place] # (Auto) 0.93 H Seg Neutrophils % Lymphocytes % Absolute Neutrophils 22.14 H Sodium 128 L Potassium 2.7 L* Chloride 92 L Carbon Dioxide 19 L Anion Gap 17.0 H BUN 41 H Creatinine 3.4 H Calcium Phosphorus Magnesium Direct Bilirubin GGT Alkaline Phosphatase 152 H Total Protein Albumin Globulin 4.2 H Albumin/Globulin Ratio 0.8 L Meds: Medications Docusate Sodium (Docusate Sodium 100 Mg Capsule) 100 mg PO BID [facility] Last Admin: 04/05/21 08:43 Dose: Not Given Documented by: Heparin Sodium (Porcine) (Heparin 5,000 Unit/Ml Vial) 5,000 unit SQ Q12 [facility] Last Admin: 04/05/21 10:05 Dose: 5,000 unit Documented by: Ceftriaxone Sodium 2 gm/ (Dextrose) 50 mls @ 100 mls/hr IV DAILY [facility] [place]; Protocol Last Infusion: 04/05/21 10:35 Dose: Infused Documented by: Metronidazole (Flagyl) 500 mg in 100 mls @ 100 mls/hr IV Q8H [facility]; Protocol Last Infusion: 04/05/21 06:26 Dose: Infused Documented by: Sodium Chloride (Sodium Chloride 0.9%) 1,000 mls @ 150 mls/hr IV .Q6H40M [facility] Last Admin: 04/05/21 06:57 Dose: 150 mls/hr Documented by: Sodium Chloride (Sodium Chloride 0.9%) 250 mls @ 20 mls/hr IV .[id number] [facility] Last Admin: 04/05/21 10:06 Dose: Not Given Documented by: Norepinephrine Bitartrate 8 mg (/ Sodium Chloride) 250 mls @ 18.75 mls/hr IV Q14H PRN; Protocol PRN Reason: TITRATE TO KEEP MAP > 65 Potassium Chloride 40 meq/ (Dextrose) 520 mls @ 130 mls/hr IV BID [facility] Stop: 04/06/21 00:59 Last Admin: 04/05/21 08:43 Dose: 130 mls/hr Documented by: Lactulose (Lactulose 20 Gm/30 Ml Oral.Yudelka) 10 gm PO DAILYP PRN PRN Reason: Constipation Ondansetron HCl (Ondansetron 4 Mg/2 Ml Vial) 4 mg IV Q4HP PRN; Protocol PRN Reason: Nausea And Vomiting Last Admin: 04/05/21 10:14 Dose: 4 mg Documented by: Senna (Sennosides 1 Tablet) 2 tab PO HSP PRN PRN Reason: Constipation Sodium Chloride (0.9 % Sodium Chloride 10 Ml Syringe) 10 ml IV Q8 ABIODUN Last Admin: 04/05/21 05:30 Dose: 10 ml Documented by: A/P Narrative A/P Narrative: Assessment: 70 year old female with a history of hypertension, hyperlipidemia, hypothyroidism, unexplained chronic diarrhea, history of cholecystectomy, diverticulosis admitted for severe sepsis and acute kidney injury secondary to acute diverticulitis of the sigmoid colon. #Severe sepsis secondary to acute diverticulitis and gram negative bacteremia #Acute kidney injury, nonoliguric -prerenal vs septic ATN #Anion gap metabolic acidosis, resolving #Hypokalemia #Hyponatremia, resolved #Hx of hypertension #Hyperlipidemia #Hypothyroidism #Chronic unexplained diarrhea #Hx of cholecytectomy Plan -Ceftriaxone and Flagyl for acute diverticulitis, transition to oral in 1-2 days to complete 14 day antibiotic treatment. -IV fluid. -Follow renal function and urine output. -Avoid nephrotoxic meds, renally dose medications. -Potassium replacement IV for now. -Follow-up cultures. -Trend labs. -Clear liquid diet. -DVT PPx: Heparin SQ -CODE STATUS: Full -Disposition: Home when stable. Time Spent With Patient Time: Total time spent is greater than 50% in coordination of care (as documented) at patient's floor/unit and/or counseling patient: QUALITY Stroke Symptom Onset Unknown: No VTE Deep Vein Thrombosis/Pulmonary Embolism Present on Admission: No
[2021-04-06] MEDS: 0.9 % SODIUM CHLORIDE 1,000 ML IV SCH (03:08)
[2021-04-06 05:32] LABS: Hematocrit 27.5 % (36.0-48.0); Hemoglobin 9.2 g/dL (12.0-15.0); Mean Cell Volume 87.9 fL (80.0-100.0); Mean Corpuscular HGB Conc 33.5 g/dL (31.0-36.0); Platelet Count 258 K/mcL (140-440); RBC 3.13 M/mcL (4.00-5.20); Red Cell Distribution Width 14.8 % (11.5-14.5); WBC 14.1 K/mcL (4.5-11.0)
[2021-04-06] MEDS: 0.9 % SODIUM CHLORIDE 10 ML SYRINGE IV SCH ×3 (05:42→21:54)
[2021-04-06] MEDS: metroNIDAZOLE 500 MG/100 ML BAG IV SCH ×3 (05:42→21:54)
[2021-04-06 06:22] LABS: ALT/SGPT 21 U/L (<40); AST/SGOT 27 U/L (<32); Albumin 2.6 gm/dL (3.2-5.2); Albumin/Globulin Ratio 0.7 (1.0-2.3); Alkaline Phosphatase 160 U/L (39-117); Bilirubin,Direct < 0.2 mg/dL (0-0.3); Bilirubin,Total 0.3 mg/dL (0.1-1.0); Blood Urea Nitrogen 27 mg/dL (8-23); Calcium 8.1 mg/dL (8.6-10.4); Carbon Dioxide 15 mmol/L (22-30); Chloride 107 mmol/L (96-108); Globulin 3.7 gm/dL (2.2-3.7); Glomerular Filtration Rate 26; Glucose 94 mg/dL (70-105); Lactate Dehydrogenase 156 U/L (135-225); Triglycerides 70 mg/dL (<150); Uric Acid 6.5 mg/dL (2.5-8.0)
[2021-04-06 06:25] LABS: Band Neutrophils % 16 % (0-10); Lymphocytes % 5 % (15-49); Monocytes % (Manual) 11 % (1-12); Platelet Estimate NORMAL (Normal); RBC Morphology NORMAL (Normal); Segmented Neutrophils % 68 % (38-78)
[2021-04-06] MEDS ORDERED: POTASSIUM CHLORIDE 20 MEQ TABLET PO SCH ×2 (08:00→17:30)
[2021-04-06] MEDS: DOCUSATE SODIUM 100 MG CAPSULE PO SCH ×2 (08:48→22:44)
[2021-04-06] MEDS: HEPARIN 5,000 UNIT/ML VIAL SQ SCH ×2 (08:50→21:53)
[2021-04-06] MEDS: cefTRIAXone 2 GM in DEXTROSE 5% IN WATER 50 ML IV SCH (08:51)
[2021-04-06] MEDS ORDERED: 0.9 % SODIUM CHLORIDE 1,000 ML IV SCH (10:42)
[2021-04-06] MEDS ORDERED: LACTULOSE 20 GM/30 ML ORAL.SOL PO PRN (10:42)
[2021-04-06] MEDS ORDERED: SENNOSIDES 1 TABLET PO PRN (10:42)
--- NOTE | 2021-04-06 12:41 | Internal Med Progress Note ---
SUBJECTIVE Subjective Patient information: Note initiated : 04/06/21 at 12:38 pm Service Date, if different from initiated Date: [] Patient: Monica Feldman 70 y/o F admitted on 04/04/21 for N/V/D. Chief Complaint: [] Interval history: Ms. Feldman is a 70 year old female with a history of hypertension, hyperlipidemia, hypothyroidism, unexplained chronic diarrhea, history of cholecystectomy who presented to the ED with her spouse for nausea, vomiting, chills and abdominal pain in her left lower quadrant. History was taken from the patient and her . Her symptoms began with nausea and vomiting on April 01 followed by abdominal pain starting the next day. The patient has not been able to keep down food or liquids. She has noticed a decrease in urination, also experienced severe fatigue. They did not check her temperature however the patient did have a fever in the ED. Work-up in the ED is suggestive of severe sepsis, patient had a fever, leukocytosis, hypotension, and an acute kidney injury. Work-up also showed that the patient had an anion gap metabolic acidosis, hyponatremia and hypokalemia. CT abdomen and pelvis with contrast showed acute diverticulitis of the sigmoid colon. She received IV fluids and broad-spectrum antibiotics in the ED and was admitted to the hospital for further management. 04/05 The patient feels better today, sepsis physiology has resolved, leukocytosis improving, renal function improving. 2/2 blood cultures growing gram negative bacillus, likely E coli. Advanced diet to clear liquids. Replaced potassium. 04/06 The patient continues to improve, making a lot of urine and renal function lab work improving. Persistent hypokalemia requiring ongoing replacement. Waiting on final culture results. Advanced diet. Physical exam Head: Atraumatic, normal inspection. Eyes: normal appearance, no scleral icterus. Neck: full ROM Respiratory: no respiratory distress. Cardiovascular: normal rate and rhythm, S1, S2. GI/Abdominal: soft, left lower quadrant tenderness, no guarding, no rebound tenderness. Extremities: full range of motion, nontender. Neurological: CN II-XII intact, intact motor, intact sensation. Psychiatric: normal mood. Skin: warm, normal color Constitutional Vitals: Vital Signs Temp Pulse Resp BP Pulse Ox 97.6 F 65 20 130/86 99 04/06/21 11:43 04/06/21 08:18 04/06/21 11:43 04/06/21 11:43 04/06/21 11:43 Period Temp Pulse Resp BP Sys/Murray Pulse Ox Last 24 Hr 97.3 F-98 F 65-80 16-23 115-140/73-95 93-100 Intake and Output 04/05/21 04/06/21 04/06/21 21:59 05:59 13:59 Intake Total 520 1620 390 Output Total 975 1250 525 Balance -455 370 -135 Weight 93.349 kg Intake & Output: Intake & Output 04/05/21 04/06/21 04/06/21 21:59 05:59 13:59 Intake Total 520 1620 390 Output Total 975 1250 525 Balance -455 370 -135 Weight 93.349 kg Intake: IV 100 1620 150 Sodium Chloride 0.9% 1,000 ml @ 1000 150 mls/hr IV .[id number] [facility] Rx#: [id number] Potassium Chloride 40 Meq In 520 Dextrose 5% in Water 500 ml @ 130 mls/hr IV BID [facility] Rx#: [id number] Rocephin 2 gm In Dextrose 5% in 50 Water 50 ml @ 100 mls/hr IV DAILY [facility] Rx#:[id number] Oral 420 240 Output: Urine/Stool Mix 975 1250 525 Other: Meal Breakfast Percent of Meal Consumed 100% Feeding Ability Independent Stool Color Yellow Green Stool Consistency Liquid Watery OBJ DATA Labs CBC & Chem 7: 04/06/21 04:56 04/06/21 04:56 Labs: Abnormal Lab Results 04/06/21 04/06/21 04/05/21 04:56 04:56 05:26 WBC 14.1 H RBC 3.13 L Hgb 9.2 L Hct 27.5 L RDW 14.8 H MPV 11.0 H Neut % (Auto) Lymph % (Auto) Lymph # (Auto) Louisa # (Auto) Seg Neutrophils % Band Neutrophils % 16 H Lymphocytes % 5 L Absolute Neutrophils Sodium Potassium 2.9 L* 2.7 L* Chloride Carbon Dioxide 15 L 17 L Anion Gap BUN 27 H 36 H Creatinine 1.9 H 2.6 H Calcium 8.1 L 8.0 L Phosphorus 2.0 L 2.4 L Magnesium Direct Bilirubin GGT 63 H 39 H Alkaline Phosphatase 160 H 132 H Total Protein 5.8 L Albumin 2.6 L 2.5 L Globulin Albumin/Globulin Ratio 0.7 L 0.8 L 04/05/21 04/04/21 04/04/21 05:25 15:43 09:33 WBC 17.0 H RBC 3.05 L Hgb 9.0 L Hct 27.5 L RDW 14.6 H MPV 11.1 H Neut % (Auto) Lymph % (Auto) Lymph # (Auto) Louisa # (Auto) Seg Neutrophils % 92 H Band Neutrophils % Lymphocytes % 2 L Absolute Neutrophils Sodium 128 L Potassium 2.8 L* 2.7 L* Chloride 92 L Carbon Dioxide 17 L 19 L Anion Gap 20.0 H 17.0 H BUN 41 H 41 H Creatinine 3.3 H 3.4 H Calcium Phosphorus 2.0 L Magnesium 1.5 L Direct Bilirubin 0.4 H GGT 40 H Alkaline Phosphatase 140 H 152 H Total Protein Albumin 3.0 L Globulin 4.0 H 4.2 H Albumin/Globulin Ratio 0.8 L 0.8 L 04/04/21 09:33 WBC 24.3 H RBC 3.94 L Hgb 11.6 L Hct 34.1 L RDW MPV 11.4 H Neut % (Auto) 91.1 H Lymph % (Auto) 4.7 L Lymph # (Auto) 1.13 L Louisa # (Auto) 0.93 H Seg Neutrophils % Band Neutrophils % Lymphocytes % Absolute Neutrophils 22.14 H Sodium Potassium Chloride Carbon Dioxide Anion Gap BUN Creatinine Calcium Phosphorus Magnesium Direct Bilirubin GGT Alkaline Phosphatase Total Protein Albumin Globulin Albumin/Globulin Ratio Meds: Medications Atorvastatin Calcium (Atorvastatin 40 Mg Tablet) 40 mg PO QPM [facility] Docusate Sodium (Docusate Sodium 100 Mg Capsule) 100 mg PO BID [facility] Fish Oil (Fish Oil 1,000 Mg Capsule) 1,000 mg PO DAILY [facility] Heparin Sodium (Porcine) (Heparin 5,000 Unit/Ml Vial) 5,000 unit SQ Q12 [facility] Sodium Chloride (Sodium Chloride 0.9%) 1,000 mls @ 75 mls/hr IV .[id number] [facility] Ceftriaxone Sodium 2 gm/ (Dextrose) 50 mls @ 100 mls/hr IV DAILY [facility]; Protocol Metronidazole (Flagyl) 500 mg in 100 mls @ 100 mls/hr IV Q8H [facility]; Protocol Lactobacillus Rhamnosus (Lactobacillus 1 Capsule) 1 cap PO QDAY [facility] Lactulose (Lactulose 20 Gm/30 Ml Oral.Yudelka) 10 gm PO DAILYP PRN PRN Reason: Constipation Levothyroxine Sodium (Levothyroxine 25 Mcg Tablet) 37.5 mcg PO QAMAC [facility] Ondansetron HCl (Ondansetron 4 Mg/2 Ml Vial) 4 mg IV Q4HP PRN; Protocol PRN Reason: Nausea And Vomiting Potassium Chloride (Potassium Chloride 20 Meq Tablet) 40 meq PO BIDCC [facility] Stop: 04/06/21 17:31 Potassium Chloride (Potassium Chloride 10 Meq Tablet) 10 meq PO BID [facility] Senna (Sennosides 1 Tablet) 2 tab PO HSP PRN PRN Reason: Constipation Sodium Chloride (0.9 % Sodium Chloride 10 Ml Syringe) 10 ml IV Q8 [facility] Vitamin D (Vitamin D3 1,000 Unit Tablet) 1,000 unit PO DAILY [facility] Zinc Sulfate (Zinc Sulfate 50 Mg Capsule) 50 mg PO DAILY [facility] A/P Narrative A/P Narrative: Assessment: 70 year old female with a history of hypertension, hyperlipidemia, hypothyroidism, unexplained chronic diarrhea, history of cholecystectomy, di verticulosis admitted for severe sepsis and acute kidney injury secondary to acute diverticulitis of the sigmoid colon. #Severe sepsis secondary to acute diverticulitis and gram negative bacteremia, resolving #Acute kidney injury, nonoliguric -likely prerenal d/t sepsis #Normocytic anemia, likely from sepsis and dilution #Resolved anion gap metabolic acidosis, resolving #Hypokalemia #Resolved hyponatremia #Hx of hypertension #Hyperlipidemia #Hypothyroidism #Chronic unexplained diarrhea #Hx of cholecystectomy Plan -Transfer to med/surg -Ceftriaxone and Flagyl for acute diverticulitis, transition to oral Augmentin at discharge to complete 14 day antibiotic treatment. -IV fluid today then discontinue. -Follow renal function and urine output. -Avoid nephrotoxic meds, renally dose medications. -Holding home HCTZ and Losartan. -Potassium replacement IV for now. -Follow-up cultures. -Trend labs. -Clear liquid diet. -DVT PPx: Heparin SQ -CODE STATUS: Full -Disposition: Home when stable. Time Spent With Patient Time: Total time spent is greater than 50% in coordination of care (as documented) at patient's floor/unit and/or counseling patient: QUALITY Stroke Symptom Onset Unknown: No VTE Deep Vein Thrombosis/Pulmonary Embolism Present on Admission: No
[2021-04-06] MEDS: ONDANSETRON 4 MG/2 ML VIAL IV PRN (17:59)
[2021-04-06] MEDS: POTASSIUM CHLORIDE 10 MEQ TABLET PO SCH (21:53)
[2021-04-06] MEDS: ATORVASTATIN 40 MG TABLET PO SCH (21:53)
[2021-04-07] MEDS: 0.9 % SODIUM CHLORIDE 10 ML SYRINGE IV SCH ×3 (05:10→22:06)
[2021-04-07] MEDS: metroNIDAZOLE 500 MG/100 ML BAG IV SCH ×4 (05:10→22:06)
[2021-04-07 06:38] LABS: Hematocrit 27.1 % (36.0-48.0); Hemoglobin 9.2 g/dL (12.0-15.0); Mean Cell Volume 87.4 fL (80.0-100.0); Mean Corpuscular HGB Conc 33.9 g/dL (31.0-36.0); Mean Platelet Volume 10.6 fL (7.4-10.4); Platelet Count 287 K/mcL (140-440); Red Cell Distribution Width 15.4 % (11.5-14.5); WBC 11.8 K/mcL (4.5-11.0)
[2021-04-07 07:12] LABS: ALT/SGPT 24 U/L (<40); AST/SGOT 33 U/L (<32); Albumin 2.5 gm/dL (3.2-5.2); Albumin/Globulin Ratio 0.7 (1.0-2.3); Alkaline Phosphatase 165 U/L (39-117); Bilirubin,Direct < 0.2 mg/dL (0-0.3); Bilirubin,Total 0.3 mg/dL (0.1-1.0); Blood Urea Nitrogen 18 mg/dL (8-23); Calcium 8.5 mg/dL (8.6-10.4); Carbon Dioxide 17 mmol/L (22-30); Chloride 112 mmol/L (96-108); Globulin 3.5 gm/dL (2.2-3.7); Glomerular Filtration Rate 38; Glucose 89 mg/dL (70-105); Lactate Dehydrogenase 162 U/L (135-225); Phosphorous 1.7 mg/dL (2.5-4.5); Triglycerides 55 mg/dL (<150); Uric Acid 5.9 mg/dL (2.5-8.0)
[2021-04-07 07:34] LABS: Anisocytosis FEW (None Seen); Band Neutrophils % 11 % (0-10); Eosinophils % (Manual) 6 % (0-7); Lymphocytes % 16 % (15-49); Monocytes % (Manual) 9 % (1-12); Platelet Estimate NORMAL (Normal); RBC Morphology ABNORMAL (Normal); Segmented Neutrophils % 58 % (38-78)
[2021-04-07] MEDS: POTASSIUM CHLORIDE 10 MEQ TABLET PO SCH ×2 (08:00→22:06)
[2021-04-07] MEDS: FISH OIL 1,000 MG CAPSULE PO SCH (08:00)
[2021-04-07] MEDS: ZINC SULFATE 50 MG CAPSULE PO SCH (08:00)
[2021-04-07] MEDS: HEPARIN 5,000 UNIT/ML VIAL SQ SCH ×2 (08:01→22:06)
[2021-04-07] MEDS: LACTOBACILLUS 1 CAPSULE PO SCH (08:01)
[2021-04-07] MEDS: LEVOTHYROXINE 25 MCG TABLET PO SCH (08:01)
[2021-04-07] MEDS: VITAMIN D3 1,000 UNIT TABLET PO SCH (08:02)
[2021-04-07] MEDS: DOCUSATE SODIUM 100 MG CAPSULE PO SCH ×2 (08:05→22:05)
[2021-04-07] MEDS ORDERED: POTASSIUM CHLORIDE 20 MEQ TABLET PO ONE (08:33)
[2021-04-07] MEDS ORDERED: POTASSIUM PHOSPHATE 20 MEQ in DEXTROSE 5% IN WATER 250 ML IV ONE (10:14)
[2021-04-07] MEDS: cefTRIAXone 2 GM in DEXTROSE 5% IN WATER 50 ML IV SCH (10:31)
[2021-04-07] MEDS: ONDANSETRON 4 MG/2 ML VIAL IV PRN (11:14)
[2021-04-07] MEDS: LOPERAMIDE 2 MG CAPSULE PO PRN ×2 (11:14→22:06)
--- NOTE | 2021-04-07 12:47 | Internal Med Progress Note ---
SUBJECTIVE Subjective Patient information: Note initiated : 04/07/21 at 12:45 pm Service Date, if different from initiated Date: [] Patient: Monica Feldman 70 y/o F admitted on 04/04/21 for N/V/D. Chief Complaint: [] Interval history: Ms. Feldman is a 70 year old female with a history of hypertension, hyperlipidemia, hypothyroidism, unexplained chronic diarrhea, history of cholecystectomy who presented to the ED with her spouse for nausea, vomiting, chills and abdominal pain in her left lower quadrant. History was taken from the patient and her . Her symptoms began with nausea and vomiting on April 01 followed by abdominal pain starting the next day. The patient has not been able to keep down food or liquids. She has noticed a decrease in urination, also experienced severe fatigue. They did not check her temperature however the patient did have a fever in the ED. Work-up in the ED is suggestive of severe sepsis, patient had a fever, leukocytosis, hypotension, and an acute kidney injury. Work-up also showed that the patient had an anion gap metabolic acidosis, hyponatremia and hypokalemia. CT abdomen and pelvis with contrast showed acute diverticulitis of the sigmoid colon. She received IV fluids and broad-spectrum antibiotics in the ED and was admitted to the hospital for further management. 04/05 The patient feels better today, sepsis physiology has resolved, leukocytosis improving, renal function improving. 2/2 blood cultures growing gram negative bacillus, likely E coli. Advanced diet to clear liquids. Replaced potassium. 04/06 The patient continues to improve, making a lot of urine and renal function lab work improving. Persistent hypokalemia requiring ongoing replacement. Waiting on final culture results. Advanced diet. 04/07 Replaced potassium, decreased diet to full liquid as patient did not tolerate regular well, trial of Imodium prn for chronic diarrhea. Improving renal function and WBC. Blood culture ID still pending. Physical exam Head: Atraumatic, normal inspection. Eyes: normal appearance, no scleral icterus. Neck: full ROM Respiratory: no respiratory distress. Cardiovascular: normal rate and rhythm, S1, S2. GI/Abdominal: soft, left lower quadrant tenderness, no guarding, no rebound tenderness. Extremities: full range of motion, nontender. Neurological: CN II-XII intact, intact motor, intact sensation. Psychiatric: normal mood. Skin: warm, normal color Constitutional Vitals: Vital Signs Temp Pulse Resp BP Pulse Ox 97.6 F 63 14 155/97 98 04/07/21 11:59 04/07/21 11:59 04/07/21 11:59 04/07/21 11:59 04/07/21 11:59 Period Temp Pulse Resp BP Sys/Murray Pulse Ox Last 24 Hr 97.6 F-99.7 F 62-73 12-20 124-158/78-97 97-98 Intake and Output 04/06/21 04/07/21 04/07/21 21:59 05:59 13:59 Intake Total 340 1750 225 Output Total 375 1400 600 Balance -35 350 -375 Weight 95.481 kg Intake & Output: Intake & Output 04/06/21 04/07/21 04/07/21 21:59 05:59 13:59 Intake Total 340 1750 225 Output Total 375 1400 600 Balance -35 350 -375 Weight 95.481 kg Intake: IV 100 1100 150 Sodium Chloride 0.9% 1,000 ml @ 1000 75 mls/hr IV .[id number] [facility] Rx#: [id number] Rocephin 2 gm In Dextrose 5% in 50 Water 50 ml @ 100 mls/hr IV DAILY [facility] Rx#:[id number] Oral 240 650 75 Output: Void Amount 200 Urine/Stool Mix 225 1400 400 Stool 150 Other: Meal Dinner Breakfast Percent of Meal Consumed 75% 75% Feeding Ability Independent Urine Appearance Clear Urine Color Pale Bright Yellow Urine Odor Normal Normal Stool Size Small Small Stool Color Brown Brown Yellow Yellow Stool Consistency Liquid Liquid # Voids 1 # Bowel Movements 1 OBJ DATA Labs CBC & Chem 7: 04/07/21 05:36 04/07/21 05:36 Labs: Abnormal Lab Results 04/07/21 04/07/21 04/06/21 05:36 05:36 04:56 WBC 11.8 H RBC 3.10 L Hgb 9.2 L Hct 27.1 L RDW 15.4 H MPV 10.6 H Seg Neutrophils % Band Neutrophils % 11 H Lymphocytes % RBC Morphology Abnormal A Anisocytosis Few A Potassium 3.2 L 2.9 L* Chloride 112 H Carbon Dioxide 17 L 15 L Anion Gap BUN 27 H Creatinine 1.4 H 1.9 H Calcium 8.5 L 8.1 L Phosphorus 1.7 L 2.0 L Magnesium Direct Bilirubin GGT 104 H 63 H AST 33 H Alkaline Phosphatase 165 H 160 H Total Protein Albumin 2.5 L 2.6 L Globulin Albumin/Globulin Ratio 0.7 L 0.7 L 04/06/21 04/05/21 04/05/21 04:56 05:26 05:25 WBC 14.1 H 17.0 H RBC 3.13 L 3.05 L Hgb 9.2 L 9.0 L Hct 27.5 L 27.5 L RDW 14.8 H 14.6 H MPV 11.0 H 11.1 H Seg Neutrophils % 92 H Band Neutrophils % 16 H Lymphocytes % 5 L 2 L RBC Morphology Anisocytosis Potassium 2.7 L* Chloride Carbon Dioxide 17 L Anion Gap BUN 36 H Creatinine 2.6 H Calcium 8.0 L Phosphorus 2.4 L Magnesium Direct Bilirubin GGT 39 H AST Alkaline Phosphatase 132 H Total Protein 5.8 L Albumin 2.5 L Globulin Albumin/Globulin Ratio 0.8 L 04/04/21 15:43 WBC RBC Hgb Hct RDW MPV Seg Neutrophils % Band Neutrophils % Lymphocytes % RBC Morphology Anisocytosis Potassium 2.8 L* Chloride Carbon Dioxide 17 L Anion Gap 20.0 H BUN 41 H Creatinine 3.3 H Calcium Phosphorus 2.0 L Magnesium 1.5 L Direct Bilirubin 0.4 H GGT 40 H AST Alkaline Phosphatase 140 H Total Protein Albumin 3.0 L Globulin 4.0 H Albumin/Globulin Ratio 0.8 L Meds: Medications Atorvastatin Calcium (Atorvastatin 40 Mg Tablet) 40 mg PO QPM [facility] Last Admin: 04/06/21 21:53 Dose: 40 mg Documented by: Docusate Sodium (Docusate Sodium 100 Mg Capsule) 100 mg PO BID [facility] Last Admin: 04/07/21 08:05 Dose: Not Given Documented by: Fish Oil (Fish Oil 1,000 Mg Capsule) 1,000 mg PO DAILY [facility] Last Admin: 04/07/21 08:00 Dose: 1,000 mg Documented by: Heparin Sodium (Porcine) (Heparin 5,000 Unit/Ml Vial) 5,000 unit SQ Q12 [facility] Last Admin: 04/07/21 08:01 Dose: 5,000 unit Documented by: Ceftriaxone Sodium 2 gm/ (Dextrose) 50 mls @ 100 mls/hr IV DAILY [facility]; Protocol Last Infusion: 04/07/21 12:21 Dose: Infused Documented by: Metronidazole (Flagyl) 500 mg in 100 mls @ 100 mls/hr IV Q8H [facility]; Protocol Last Infusion: 04/07/21 06:10 Dose: Infused Documented by: Lactobacillus Rhamnosus (Lactobacillus 1 Capsule) 1 cap PO QDAY [facility] Last Admin: 04/07/21 08:01 Dose: 1 cap Documented by: Lactulose (Lactulose 20 Gm/30 Ml Oral.Yudelka) 10 gm PO DAILYP PRN PRN Reason: Constipation Levothyroxine Sodium (Levothyroxine 25 Mcg Tablet) 37.5 mcg PO QAMAC [facility] Last Admin: 04/07/21 08:01 Dose: 37.5 mcg Documented by: Loperamide HCl (Loperamide 2 Mg Capsule) 2 mg PO PRN PRN PRN Reason: Diarrhea Last Admin: 04/07/21 11:14 Dose: 2 mg Documented by: Ondansetron HCl (Ondansetron 4 Mg/2 Ml Vial) 4 mg IV Q4HP PRN; Protocol PRN Reason: Nausea And Vomiting Last Admin: 04/07/21 11:14 Dose: 4 mg Documented by: Potassium Chloride (Potassium Chloride 10 Meq Tablet) 10 meq PO BID [facility] Last Admin: 04/07/21 08:00 Dose: 10 meq Documented by: Senna (Sennosides 1 Tablet) 2 tab PO HSP PRN PRN Reason: Constipation Sodium Chloride (0.9 % Sodium Chloride 10 Ml Syringe) 10 ml IV Q8 [facility] Last Admin: 04/07/21 05:10 Dose: 10 ml Documented by: Vitamin D (Vitamin D3 1,000 Unit Tablet) 1,000 unit PO DAILY [facility] Last Admin: 04/07/21 08:02 Dose: 1,000 unit Documented by: Zinc Sulfate (Zinc Sulfate 50 Mg Capsule) 50 mg PO DAILY [facility] Last Admin: 04/07/21 08:00 Dose: 50 mg Documented by: A/P Narrative A/P Narrative: Assessment: 70 year old female with a history of hypertension, hyperlipidemia, hypothyroidism, unexplained chronic diarrhea, history of cholecystectomy, diverticulosis admitted for severe sepsis and acute kidney injury secondary to acute diverticulitis of the sigmoid colon. Blood cultures grew gram negative bacillus. #Severe sepsis secondary to acute diverticulitis and gram negative bacteremia, resolving #Acute kidney injury, nonoliguric -likely prerenal d/t sepsis #Normocytic anemia, likely from sepsis and dilution #Resolved anion gap metabolic acidosis #Hypokalemia #Resolved hyponatremia #Hx of hypertension #Hyperlipidemia #Hypothyroidism #Chronic unexplained diarrhea #Hx of cholecystectomy Plan -Ceftriaxone and Flagyl for acute diverticulitis, anticipate transition to oral Augmentin at discharge to complete 14 day antibiotic treatment. -Follow renal function and urine output. -Avoid nephrotoxic meds, renally dose medications. -Holding home HCTZ and Losartan. -Potassium replacement as needed. -Trial of Imodium prn for chronic diarrhea. -Follow-up cultures. -Trend labs. -Clear liquid diet. -DVT PPx: Heparin SQ -CODE STATUS: Full -Disposition: Home when stable, follow up with GI for ongoing chronic diarrhea workup. Time Spent With Patient Time: Total time spent is greater than 50% in coordination of care (as docum ented) at patient's floor/unit and/or counseling patient: QUALITY Stroke Symptom Onset Unknown: No VTE Deep Vein Thrombosis/Pulmonary Embolism Present on Admission: No
[2021-04-07] MEDS: ACETAMINOPHEN 325 MG TABLET PO PRN (19:26)
[2021-04-07] MEDS: ATORVASTATIN 40 MG TABLET PO SCH (22:06)
[2021-04-08] MEDS: ACETAMINOPHEN 325 MG TABLET PO PRN ×2 (03:19→13:40)
[2021-04-08] MEDS: metroNIDAZOLE 500 MG/100 ML BAG IV SCH (05:09)
[2021-04-08] MEDS: 0.9 % SODIUM CHLORIDE 10 ML SYRINGE IV SCH (05:10)
[2021-04-08 06:49] LABS: Hematocrit 28.3 % (36.0-48.0); Hemoglobin 9.5 g/dL (12.0-15.0); Mean Cell Volume 87.1 fL (80.0-100.0); Mean Corpuscular HGB Conc 33.6 g/dL (31.0-36.0); Mean Platelet Volume 10.4 fL (7.4-10.4); Platelet Count 320 K/mcL (140-440); RBC 3.25 M/mcL (4.00-5.20); Red Cell Distribution Width 15.5 % (11.5-14.5); WBC 11.1 K/mcL (4.5-11.0)
[2021-04-08] MEDS: LEVOTHYROXINE 25 MCG TABLET PO SCH (07:07)
[2021-04-08 07:16] LABS: ALT/SGPT 21 U/L (<40); AST/SGOT 23 U/L (<32); Albumin 2.5 gm/dL (3.2-5.2); Albumin/Globulin Ratio 0.7 (1.0-2.3); Alkaline Phosphatase 155 U/L (39-117); Bilirubin,Direct < 0.2 mg/dL (0-0.3); Bilirubin,Total 0.3 mg/dL (0.1-1.0); Blood Urea Nitrogen 13 mg/dL (8-23); Calcium 9.1 mg/dL (8.6-10.4); Carbon Dioxide 19 mmol/L (22-30); Chloride 110 mmol/L (96-108); Globulin 3.7 gm/dL (2.2-3.7); Glomerular Filtration Rate 51; Glucose 88 mg/dL (70-105); Lactate Dehydrogenase 159 U/L (135-225); Triglycerides 62 mg/dL (<150)
[2021-04-08] MEDS ORDERED: MAGNESIUM SULFATE 2 GM/50 ML BAG IV ONE (07:32)
[2021-04-08] MEDS: FISH OIL 1,000 MG CAPSULE PO SCH (08:15)
[2021-04-08] MEDS: cefTRIAXone 2 GM in DEXTROSE 5% IN WATER 50 ML IV SCH (08:15)
[2021-04-08] MEDS: LACTOBACILLUS 1 CAPSULE PO SCH (08:16)
[2021-04-08] MEDS: POTASSIUM CHLORIDE 10 MEQ TABLET PO SCH (08:16)
[2021-04-08] MEDS: VITAMIN D3 1,000 UNIT TABLET PO SCH (08:16)
[2021-04-08] MEDS: HEPARIN 5,000 UNIT/ML VIAL SQ SCH (08:17)
[2021-04-08] MEDS: ZINC SULFATE 50 MG CAPSULE PO SCH (08:26)
[2021-04-08] MEDS: LOPERAMIDE 2 MG CAPSULE PO PRN (08:26)
[2021-04-08 09:22] LABS: Anisocytosis 1+ (None Seen); Band Neutrophils % 3 % (0-10); Basophils % (Manual) 1 % (0-2); Eosinophils % (Manual) 6 % (0-7); Lymphocytes % 27 % (15-49); Monocytes % (Manual) 7 % (1-12); Platelet Estimate NORMAL (Normal); RBC Morphology ABNORMAL (Normal); Segmented Neutrophils % 56 % (38-78)
[2021-04-08] MEDS: DOCUSATE SODIUM 100 MG CAPSULE PO SCH (09:22)
--- NOTE | 2021-04-08 11:06 | Discharge Summary ---
Discharge Provider Provider Patient information: Note initiated : 04/08/21 at 11:02 am Service Date, if different from initiated Date: [] Patient: Monica Feldman 70 y/o F admitted on 04/04/21 for N/V/D. Chief Complaint: [] Date of admission: 04/04/21 14:31 Discharge date: 04/08/21 Primary care physician: Niranjan Tejada M.D., F.A.A.F.P. Consults: 04/04/21 Consult to Physician [CONS] Stat Comment: Consulting Provider: Michael Krishnan Reason For Exam: Physician to Consult Discharge Meds Discharge Medications Home Medications cholecalciferol (vitamin D3) 25 mcg (1,000 unit) capsule 1,000 unit PO QDAY 07/20/18 [History Confirmed 04/04/21 Last Taken Unknown] omega-3 fatty acids 1,000 mg capsule 1,000 mg PO QDAY 07/20/18 [History Confirmed 04/04/21 Last Taken Unknown] atorvastatin 40 mg tablet 40 mg PO QPM 90 Days #90 tab 01/10/21 [Rx Confirmed 04/04/21 Last Taken Unknown] levothyroxine 25 mcg tablet 37.5 mcg PO QDAY 180 Days #270 tab 02/12/21 [Rx Confirmed 04/04/21 Last Taken Unknown] lactobacillus combination no.8 3 billion cell capsule 6,000 mmu cells PO QDAY cap 02/25/21 [History Confirmed 04/05/21 Last Taken 04/04/21] zinc 50 mg tablet 50 mg PO QDAY 02/25/21 [History Confirmed 04/04/21 Last Taken Unknown] losartan 100 mg PO HS 04/04/21 [History Confirmed 04/04/21 Last Taken Unknown] potassium chloride 10 meq PO BID 04/04/21 [History Confirmed 04/04/21 Last Taken Unknown] propranolol 10 mg PO BID 04/04/21 [History Confirmed 04/04/21 Last Taken Unknown] amoxicillin-pot clavulanate [Augmentin] 1 tab PO BID 10 Days #20 tab 04/08/21 [Rx Last Taken Unknown] loperamide 2 mg PO PRN PRN #20 cap 04/08/21 [Rx Last Taken Unknown] ondansetron HCl [Zofran] 4 mg PO Q6H PRN #30 tab 04/08/21 [Rx Last Taken Unknown] COURSE Hospital Course Hospital course: Mrs. Feldman is a 70 year old female with a history of hypertension, hyperlipidemia, hypothyroidism, unexplained chronic diarrhea, history of cholecystectomy who presented to the ED with her spouse for nausea, vomiting, chills and abdominal pain in her left lower quadrant. History was taken from the patient and her . Her symptoms began with nausea and vomiting on April 01 followed by abdominal pain starting the next day. The patient has not been able to keep down food or liquids. She has noticed a decrease in urination, also experienced severe fatigue. They did not check her temperature however the patient did have a fever in the ED. Work-up in the ED is suggestive of severe sepsis, patient had a fever, leukocytosis, hypotension, and an acute kidney injury. Work-up also showed that the patient had an anion gap metabolic acidosis, hyponatremia and hypokalemia. CT abdomen and pelvis with contrast showed acute diverticulitis of the sigmoid colon. She received IV fluids and broad-spectrum antibiotics in the ED and was admitted to the hospital for further management. 04/05 The patient feels better today, sepsis physiology has resolved, leukocytosis improving, renal function improving. 2/2 blood cultures growing gram negative bacillus, likely E coli. Advanced diet to clear liquids. Replaced potassium. 04/06 The patient continues to improve, making a lot of urine and renal function lab work improving. Persistent hypokalemia requiring ongoing replacement. Waiting on final culture results. Advanced diet. 04/07 Replaced potassium, decreased diet to full liquid as patient did not tolerate regular well, trial of Imodium prn for chronic diarrhea. Improving renal function and WBC. Blood culture ID still pending. 04/08 Discharged to home on Augmentin to complete 14 total antibiotic days for gram negative bacteremia from diverticulitis. Renal function normal today, resumed losartan at discharge but not hydrochlorothiazide. Added Imodium prn which seemed to help during hospital stays. Post hospital follow up; -Blood pressure management-holding Hydrochlorothiazide at discharge. -Follow up pending blood cultures. -On going workup for unexplained chronic diarrhea. Physical exam Head: Atraumatic, normal inspection. Eyes: normal appearance, no scleral icterus. Neck: full ROM Respiratory: no respiratory distress. Cardiovascular: normal rate and rhythm, S1, S2. GI/Abdominal: soft, left lower quadrant tenderness, no guarding, no rebound tenderness. Extremities: full range of motion, nontender. Neurological: CN II-XII intact, intact motor, intact sensation. Psychiatric: normal mood. Skin: warm, normal color Discharge diagnosis: Gram negative bacteremia secondary to acute sigmoid diverticulitis Time Spent with Patient Time attestation: Total time spent providing and/or coordinating discharge services: EXAM Constitutional Vitals: Temp Pulse Resp BP Pulse Ox 97.3 F 69 20 133/86 98 04/08/21 07:45 04/08/21 07:45 04/08/21 07:45 04/08/21 07:45 04/08/21 07:45 Discharge Data Data Completed and Pending Labs on day of discharge: Labs from last 24 hours 04/08/21 04/08/21 05:56 05:56 WBC 11.1 H RBC 3.25 L Hgb 9.5 L Hct 28.3 L MCV 87.1 MCH 29.2 MCHC 33.6 RDW 15.5 H Plt Count 320 MPV 10.4 Seg Neutrophils % 56 Band Neutrophils % 3 Lymphocytes % 27 Monocytes % (Manual) 7 Eosinophils % (Manual) 6 Basophils % (Manual) 1 Platelet Estimate Normal RBC Morphology Abnormal A Anisocytosis 1+ A Sodium 138 Potassium 3.7 Chloride 110 H Carbon Dioxide 19 L Anion Gap 9.0 BUN 13 Creatinine 1.1 GFR Calculation 51 Glucose 88 Uric Acid 5.0 Calcium 9.1 Phosphorus 2.0 L Magnesium 1.5 L Total Bilirubin 0.3 Direct Bilirubin < 0.2 GGT 91 H AST 23 ALT 21 Alkaline Phosphatase 155 H Lactate Dehydrogenase 159 Total Protein 6.2 Albumin 2.5 L Globulin 3.7 Albumin/Globulin Ratio 0.7 L Triglycerides 62 Preliminary micro results at discharge 04/04/21 10:40 Blood Culture - Preliminary Blood Gram negative bacillus 04/04/21 10:29 Blood Culture - Preliminary Blood Gram negative bacillus Discharge Plan Patient/Caregiver Discharge Instructions Activity: increase activity as tolerated Diet: Full Liquid Prescriptions: New loperamide 2 mg Capsule 2 mg PO PRN PRN (Reason: Diarrhea) Qty: 20 RF: 0 amoxicillin-pot clavulanate [Augmentin] 875-125 mg tablet 1 tab PO BID 10 Days Qty: 20 RF: 0 ondansetron HCl [Zofran] 4 mg tablet 4 mg PO Q6H PRN (Reason: nausea and vomiting) Qty: 30 RF: 1 Continued atorvastatin 40 mg tablet 40 mg PO QPM 90 Days Qty: 90 RF: 3 levothyroxine 25 mcg tablet 37.5 mcg PO QDAY 180 Days Qty: 270 RF: 3 cholecalciferol (vitamin D3) 1,000 unit capsule 1,000 unit PO QDAY RF: 0 omega-3 fatty acids [Fish Oil Concentrate] 1,000 mg capsule 1,000 mg PO QDAY RF: 0 Adult Probiotic 3 billion cell capsule 6,000 mmu cells PO QDAY RF: 0 zinc 50 mg tablet 50 mg PO QDAY RF: 0 potassium chloride 10 mEq tablet extended release 10 meq PO BID RF: 0 propranolol 10 mg tablet 10 mg PO BID RF: 0 losartan 100 mg tablet 100 mg PO HS RF: 0 Discontinued hydrochlorothiazide 25 mg tablet 25 mg PO HS RF: 0 Follow Up Plan Follow up with: Niranjan Tejada MD, FAAFP [Primary Care Provider] - Patient Disposition: Home, Self-Care Discharge Orders: Discharge Order (Routine); Ordered 04/08/21 Ordered By: Michael Krishnan QUALITY VTE Deep Vein Thrombosis/Pulmonary Embolism Present on Admission: No
== END 2021-04-08 14:10 | disposition home or self-care (01) | DRG 872 ==
LOC: ED 08:45 → ICU 14:30 → MEDSUR 04-06 15:15
PROVIDERS: ADMIT Internal Medicine; ATTEND Internal Medicine